=== PATIENT | male | born 1975 | race Caucasian/White ===

== ENCOUNTER 2019-05-19 05:57 | Observation (INO) ==
[2019-05-19] MEDS ORDERED: Ondansetron 4 MG/2 ML VIAL IVP ONE ×2 (06:06→07:50)
[2019-05-19] MEDS ORDERED: 0.9 % Sodium Chloride 1,000 ML IVC ONE (06:06)
[2019-05-19] MEDS ORDERED: Ketorolac 30 MG/ML VIAL IVP ONE (06:06)
[2019-05-19] MEDS ORDERED: *HR* HYDROmorphone (PF) 1 MG/ML SYRINGE IVP ONE (06:06)
--- NOTE | 2019-05-19 06:09 | Emergency Department Note ---
Disposition Clinical Impression: Ureterolithiasis Disposition: Admitted As Inpatient Condition: Good Time of Disposition: 09:14 Abdominal Pain HPI - General Chief Complaint: ED Abdominal Pain Stated Complaint: left side flank pain Time Seen by Provider: 05/19/19 06:02 Source: patient Mode of arrival: private vehicle Limitations: no limitations Nursing Notes Reviewed: Yes Vital Signs Reviewed: Yes - History of Present Illness HPI Narrative: Dez is a pleasant 43 yo M. He presents to the ED with a chief complaint of pain not controlled with [place] for known kidney stone that was diagnosed on May 18 in the [facility] emergency room. Patient denies chest pain, shortness of breath, fevers chest pain dysuria inability to urinate. He states this is his first kidney stone. He states that he was relatively pain-free while he was in the emergency room on 05/18 however soon as he left the emergency room his pain started to increase. He states the pain is localized to his lower back and denies radiation into his groin. He states the pain comes in waves and that he is not able to control the pain with pain medication provided. He is unsure what makes the pain better or worse. He is otherwise healthy. Pt Subjective Complaint: flank pain Onset (ago): day(s) Consistency: intermittent, Worsening Pain Scale: 9 Radiation: none Migration to: no migration - Related Data Previous Rx's Medication Instructions Recorded HYDROcodone/Acet 5/325 mg [[place] 1 tab PO Q6H 2 Days #7 tab 05/18/19 5-325 mg] Ondansetron ODT [Zofran ODT] 4 mg SL Q4HR PRN #8 tab.rapdis 05/19/19 OxyCODONE/APAP 5/325 [Percocet 1 each PO Q4HR PRN 3 Days #10 05/19/19 5/325 MG] tablet Tamsulosin [Flomax] 0.4 mg PO DAILY #7 cap.er.24h 05/19/19 Allergies Allergy/AdvReac Type Severity Reaction Status Date / Time No Known Allergies Allergy Verified 05/19/19 06:00 All systems ED: reviewed and negative except as stated. Review of Systems: As Per HPI Abdominal Pain PMH - Past Medical History Medical history: Reports: no medical history Male Surgical History: Reports: no surgical history - Social History Smoking status: Never smoker Alcohol use: Reports: none Drug use: Reports: none Physical Exam - General Limitations: no limitations General appearance: alert - Head Head exam: atraumatic - Eye Eye exam: Present: normal appearance - ENT ENT exam: normal exam, normal oropharynx - Neck Neck exam: Present: normal inspection - Respiratory Respiratory exam: Present: normal lung sounds bilaterally. Absent: respiratory distress, wheezes - Cardiovascular Cardiovascular exam: Present: regular rate, normal rhythm - Abdominal Exam Abdominal exam: Present: soft, Non-Tender - Back Exam Back exam: Present: CVA tenderness (L) - Neurological Exam Neurological exam: Present: alert, oriented X3 - Skin Skin exam: Present: warm, dry, intact Course Course Narrative: 08 - patient notes that he has some return of nausea. He states the nausea medication helped the first time. 08 - patient has pain is starting to return. Patient will be changes orals at this time in anticipation of discharge. We are still waiting on hemolyzed redraw BNP to be resulted. Patient was initially prepped for discharge and transition oral pain medication which initially helped him. Patient states that roughly 1 hour following 2 by mouth Percocet 04/19 that his pain returned and was worsening. I discussed this case with Dr. Ovalle as well as the family and patient prefers to be admitted for pain control for potential lithotripsy tomorrow. Dr. Ovalle will admit the patient to his service as patient does not have any prior medical history that he disclosed to me. Vital Signs Temperature 97.5 F L 05/19/19 05:58 Pulse Rate 62 05/19/19 05:58 Respiratory Rate 20 05/19/19 05:58 Blood Pressure 125/75 05/19/19 05:58 O2 Sat by Pulse Oximetry 98 05/19/19 05:58 Temperature 97.5 F L 05/19/19 05:58 Pulse Rate 49 05/19/19 08:48 Respiratory Rate 20 05/19/19 08:48 Blood Pressure 117/71 05/19/19 08:48 O2 Sat by Pulse Oximetry 99 05/19/19 08:48 Oxygen Delivery Oxygen Delivery Nasal Cannula Abdominal Pain - [facility] Narrative Medical decision making narrative: Toradol added initially due to patient's worsening pain and based on labs from 05/18 and effort to control the pain in a patient with known stone. Case was staffed with Dr. Sybil Soto. - Medical Records Medical records reviewed: Yes I reviewed the patient's medical records. - Lab Data Lab results reviewed: Yes I reviewed the patient's lab results. Result diagrams: 05/19/19 06:20 05/19/19 08:08 Lab Results 05/19/19 05/19/19 05/19/19 Range/Units 06:20 06:20 07:47 WBC 11.7 H (4.3-11.1) K/mcL RBC 5.52 H (4.19-5.50) M/mcL Hgb 16.2 (12.9-16.9) g/dL Hct 46.8 (37.5-50.1) % MCV 84.8 (83.0-100.0) fL MCH 29.3 (28.0-33.3) pg MCHC 34.6 (31.6-35.5) g/dL RDW 12.2 (11.5-14.5) % Plt Count 185 (140-400) K/mcL MPV 11.4 (9.4-12.4) fL Immature Gran % 0.3 (0-4) % Seg Neutrophils % 81.6 % Lymphocytes % 11.8 % Monocytes % 5.5 % Eosinophils % 0.5 % Basophils % 0.3 % Neutrophils # 9.6 H (1.6-8.9) K/mcL Lymphocytes # 1.4 (0.6-4.6) K/mcL Monocytes # 0.6 (0.0-1.3) K/mcL Eosinophils # 0.1 (0.0-0.6) K/mcL Basophils # 0.0 (0.0-0.2) K/mcL Sodium (136-145) mEq/L Potassium (3.5-5.1) mEq/L Chloride (98-107) mEq/L Carbon Dioxide (23-29) mEq/L BUN (6-20) mg/dL Creatinine (0.70-1.30) mg/dL Est GFR ( Amer) (> 60) Est GFR (Non-Af Amer) (> 60) BUN/Creatinine Ratio (6-26) Glucose (70-105) mg/dL Calculated Osmolality (280-300) Calcium (8.6-10.3) mg/dL Urine Color Yellow (Yellow) Urine Clarity Clear (Clear) Urine pH 5.5 (5.0-8.0) pH Units Ur Specific [place] > 1.030 H (1.010-1.025) Urine Protein Negative (Neg-Trace) mg/dL Urine Glucose (UA) Normal (Normal) mg/dL Urine Ketones Trace H (Negative) mg/dL Urine Blood Negative (Negative) Urine Nitrite Negative (Negative) Urine Bilirubin Negative (Negative) Urine Urobilinogen Normal (Normal) mg/dL Ur Leukocyte Esterase Negative (Negative) Ur Culture Indicated? NO (NO) Specimen Rejected Hemolyzed 05/19/19 Range/Units 08:08 WBC (4.3-11.1) K/mcL RBC (4.19-5.50) M/mcL Hgb (12.9-16.9) g/dL Hct (37.5-50.1) % MCV (83.0-100.0) fL MCH (28.0-33.3) pg MCHC (31.6-35.5) g/dL RDW (11.5-14.5) % Plt Count (140-400) K/mcL MPV (9.4-12.4) fL Immature Gran % (0-4) % Seg Neutrophils % % Lymphocytes % % Monocytes % % Eosinophils % % Basophils % % Neutrophils # (1.6-8.9) K/mcL Lymphocytes # (0.6-4.6) K/mcL Monocytes # (0.0-1.3) K/mcL Eosinophils # (0.0-0.6) K/mcL Basophils # (0.0-0.2) K/mcL Sodium 143 (136-145) mEq/L Potassium 3.9 (3.5-5.1) mEq/L Chloride 108 H (98-107) mEq/L Carbon Dioxide 23 (23-29) mEq/L BUN 17 (6-20) mg/dL Creatinine 1.47 H (0.70-1.30) mg/dL Est GFR ( Amer) > 60 (> 60) Est GFR (Non-Af Amer) 52 L (> 60) BUN/Creatinine Ratio 12 (6-26) Glucose 128 H (70-105) mg/dL Calculated Osmolality 299 (280-300) Calcium 9.2 (8.6-10.3) mg/dL Urine Color (Yellow) Urine Clarity (Clear) Urine pH (5.0-8.0) pH Units Ur Specific [place] (1.010-1.025) Urine Protein (Neg-Trace) mg/dL Urine Glucose (UA) (Normal) mg/dL Urine Ketones (Negative) mg/dL Urine Blood (Negative) Urine Nitrite (Negative) Urine Bilirubin (Negative) Urine Urobilinogen (Normal) mg/dL Ur Leukocyte Esterase (Negative) Ur Culture Indicated? (NO) Specimen Rejected - Radiology Data Radiology results reviewed: Yes I reviewed the patient's radiology results.
[2019-05-19 06:43] LABS: Basophils % 0.3 %; Eosinophils # 0.1 K/mcL (0.0-0.6); Eosinophils % 0.5 %; Hematocrit 46.8 % (37.5-50.1); Hemoglobin 16.2 g/dL (12.9-16.9); Immature Granulocytes % 0.3 % (0-4); Lymphocytes # 1.4 K/mcL (0.6-4.6); Lymphocytes % 11.8 %; Mean Corpuscular HGB Conc 34.6 g/dL (31.6-35.5); Mean Corpuscular Hemoglobin 29.3 pg (28.0-33.3); Mean Corpuscular Volume 84.8 fL (83.0-100.0); Mean Platelet Volume 11.4 fL (9.4-12.4); Monocytes # 0.6 K/mcL (0.0-1.3); Monocytes % 5.5 %; Neutrophils # 9.6 K/mcL (1.6-8.9); Platelet Count 185 K/mcL (140-400); Red Blood Count 5.52 M/mcL (4.19-5.50); Red Cell Distribution Width 12.2 % (11.5-14.5); Segmented Neutrophils % 81.6 %; White Blood Count 11.7 K/mcL (4.3-11.1)
[2019-05-19 07:58] LABS: Bilirubin,Urine Negative (Negative); Blood,Urine Negative (Negative); Clarity,Urine Clear (Clear); Color,Urine Yellow (Yellow); Glucose,Urine (UA) Normal (Normal); Ketones,Urine Trace mg/dL (Negative); Leukocyte Esterase,Urine Negative (Negative); Nitrite,Urine Negative (Negative); PH,Urine 5.5 pH Units (5.0-8.0); Protein,Urine Negative (Neg-Trace); Specific Gravity,Urine > 1.030 (1.010-1.025); Urobilinogen,Urine Normal (Normal)
[2019-05-19] MEDS ORDERED: *HR* OxyCODONE/APAP 5/325 TABLET PO ONE (08:29)
[2019-05-19 08:41] LABS: BUN/Creatinine Ratio 12 (6-26); Blood Urea Nitrogen 17 mg/dL (6-20); Calcium 9.2 mg/dL (8.6-10.3); Carbon Dioxide 23 mEq/L (23-29); Chloride 108 mEq/L (98-107); Glucose 128 mg/dL (70-105); Osmolality,Calculated 299 (280-300); Potassium 3.9 mEq/L (3.5-5.1); Sodium 143 mEq/L (136-145); eGFR For African Americans > 60 (> 60); eGFR For Non-African Americans 52 (> 60)
[2019-05-19] MEDS ORDERED: *HR* Belladonna Alkaloids/Opium 30 MG RECTAL SUPPOSITORY RC PRN (11:31)
[2019-05-19] MEDS ORDERED: *HR* HYDROcodone/Acet 5/325 mg TABLET PO PRN (11:31)
[2019-05-19] MEDS ORDERED: Ondansetron 4 MG/2 ML VIAL IVP PRN (11:31)
[2019-05-19] MEDS ORDERED: Naloxone 0.4 MG/ML INJ IVP PRN (11:31)
[2019-05-19] MEDS ORDERED: Hyoscyamine SL 0.125 MG TAB.SUBL SL PRN (11:31)
--- NOTE | 2019-05-19 11:48 | Urology History & Physical ---
Date of Encounter: 05/19/19 Time of Encounter: 11:37 Assessment and Plan (1) Intractable pain Current Visit: Yes Status: Acute will treat with hydrocodone, oxycodone, and IV tylenol. hold on NSAIDS bc of GFR (2) Ureterolithiasis Current Visit: Yes Status: Acute will attempt trial of passage overnight. if unable to pass stone tonight pt has been added to schedule tomorrow. stone extraction with holmium laser is appropriate procedure. History of Present Illness Chief complaint: flank pain HPI: Mr. Rivera is a 43 year old male ER visit yesterday. CT scan with a 5 mm distal stone. He returned today with severe pain. KUB shows stable location of the stone. no fever. no GH. Past Med Surg Social Fam HX - Past Medical History Medical history: no medical history - Social History Smoking Status: Never smoker Smokeless Tobacco Status: Yes Alcohol use: none Drug use: none Medications and Allergies Calcium Carbonate [Calcium] 500 mg PO 3XW 05/19/19 [History] Multivitamin [Daily Multiple Vitamin] 1 tab PO DAILY 05/19/19 [History] [place]-3/Dha/Epa/Fish Oil [Fish Oil 1,000 mg Softgel] 1 tab PO DAILY 05/19/19 [History] Ondansetron ODT [Zofran ODT] 4 mg SL Q4HR PRN #8 tab.rapdis 05/19/19 [Rx] OxyCODONE/APAP 5/325 [Percocet 5/325 MG] 1 each PO Q4HR PRN 3 Days #10 tablet 05/19/19 [Rx] Tamsulosin [Flomax] 0.4 mg PO DAILY #7 cap.er.24h 05/19/19 [Rx] Allergy/AdvReac Type Severity Reaction Status Date / Time No Known Allergies Allergy Verified 05/19/19 06:00 Review of Systems - Constitutional fatigue, no chills, no fever(s) - EENT Nose, mouth and throat: no dizziness - Cardiovascular no chest pain - Respiratory no cough - Gastrointestinal abdominal pain, nausea, vomiting - Genitourinary flank pain - Musculoskeletal back pain - Integumentary no erythema - Neurological no confusion - Psychiatric no anxiety - Hematologic/Lymphatic as per HPI, no easy bleeding - Allergic/Immunologic no throat swelling Exam Initial Vital Signs Temp Pulse Resp BP Pulse Ox 97.5 F L 62 20 125/75 98 05/19/19 05:58 05/19/19 05:58 05/19/19 05:58 05/19/19 05:58 05/19/19 05:58 - General physical appearance Present: well developed (mild pain) - Eyes Present: PERRL - ENT Present: normal nares - Neck Present: no masses - Respiratory Present: normal respiratory effort - Cardiovascular Cardiovascular exam IM: RRR - Abdomen Abdomen: Present: soft - Integumentary Present: no rash, no growths - Neurologic Present: normal coordination. Absent: disoriented, confused - Musculoskeletal Present: normal gait Urology Results - Labs 05/19/19 06:20 05/19/19 08:08 Abnormal lab results WBC 11.7 K/mcL (4.3-11.1) H 05/19/19 06:20 RBC 5.52 M/mcL (4.19-5.50) H 05/19/19 06:20 9.6 K/mcL (1.6-8.9) H 05/19/19 06:20 Chloride 108 mEq/L (98-107) H 05/19/19 08:08 1.47 mg/dL (0.70-1.30) H 05/19/19 08:08 Est GFR (Non-Af Amer) 52 (> 60) L 05/19/19 08:08 Glucose 128 mg/dL (70-105) H 05/19/19 08:08 Ur Specific [place] > 1.030 (1.010-1.025) H 05/19/19 07:47 Trace mg/dL (Negative) H 05/19/19 07:47 Diabetes panel 05/19/19 Range/Units 08:08 Sodium 143 (136-145) mEq/L Potassium 3.9 (3.5-5.1) mEq/L Chloride 108 H (98-107) mEq/L Carbon Dioxide 23 (23-29) mEq/L BUN 17 (6-20) mg/dL Creatinine 1.47 H (0.70-1.30) mg/dL Glucose 128 H (70-105) mg/dL Calcium 9.2 (8.6-10.3) mg/dL Calcium panel 05/19/19 Range/Units 08:08 Calcium 9.2 (8.6-10.3) mg/dL Pituitary panel 05/19/19 Range/Units 08:08 Sodium 143 (136-145) mEq/L Potassium 3.9 (3.5-5.1) mEq/L Chloride 108 H (98-107) mEq/L Carbon Dioxide 23 (23-29) mEq/L BUN 17 (6-20) mg/dL Creatinine 1.47 H (0.70-1.30) mg/dL Glucose 128 H (70-105) mg/dL Calcium 9.2 (8.6-10.3) mg/dL Adrenal panel 05/19/19 Range/Units 08:08 Sodium 143 (136-145) mEq/L Potassium 3.9 (3.5-5.1) mEq/L Chloride 108 H (98-107) mEq/L Carbon Dioxide 23 (23-29) mEq/L BUN 17 (6-20) mg/dL Creatinine 1.47 H (0.70-1.30) mg/dL Glucose 128 H (70-105) mg/dL Calcium 9.2 (8.6-10.3) mg/dL All other labs normal.
[2019-05-19] MEDS: cefTRIAXone 1,000 MG in Water for inj. (sterile) 10 ML IVP SCH (13:16)
[2019-05-19] MEDS: 0.9 % Sodium Chloride 1,000 ML IVC SCH ×2 (13:19→22:00)
[2019-05-19] MEDS: *HR* Promethazine 25 MG/ML VIAL IVP PRN (15:19)
--- NOTE | 2019-05-19 17:46 | Anesthesia Evaluation PreOp ---
Date of Encounter: 05/19/19 Time of Encounter: 17:45 - Past History Planned Operation: Left Ureteral Stone Extraction Cardiac History: Denies any Significant Hx Pulmonary History: Denies Any Significant HX PRE PRESS MANAGER History: Denies Any Significant HX Other Medical History: Denies Any Significant HX Anesthesia History: No Prior Anesthetic Complications, Past Anesthesia ([place] Teeth, Tonsils) Alcohol Use: none Drug use: none Medications and Allergies Calcium Carbonate [Calcium] 500 mg PO 3XW 05/19/19 [History] Multivitamin [Daily Multiple Vitamin] 1 tab PO DAILY 05/19/19 [History] [place]-3/Dha/Epa/Fish Oil [Fish Oil 1,000 mg Softgel] 1 tab PO DAILY 05/19/19 [History] Ondansetron ODT [Zofran ODT] 4 mg SL Q4HR PRN #8 tab.rapdis 05/19/19 [Rx] OxyCODONE/APAP 5/325 [Percocet 5/325 MG] 1 each PO Q4HR PRN 3 Days #10 tablet 05/19/19 [Rx] Tamsulosin [Flomax] 0.4 mg PO DAILY #7 cap.er.24h 05/19/19 [Rx] Allergy/AdvReac Type Severity Reaction Status Date / Time No Known Allergies Allergy Verified 05/19/19 06:00 - Meds/Allergy Pre-op Review Medications Reviewed: Yes Allergies Reviewed: Yes Beta Blockers on Current Med List: No Anesthesia Results - Labs 05/19/19 06:20 05/19/19 08:08 Anesthesia Exam Vital Signs/O2 Sat, Most Current Temp Pulse Resp BP Pulse Ox 98.1 F 51 15 92/54 94 05/19/19 13:50 05/19/19 13:50 05/19/19 13:50 05/19/19 13:50 05/19/19 15:49 NPO (# of Hours): > 8 hrs Pain Scale: 0 Pain Scale Used: Numeric (1 - 10) - HEENT Pupil (Motor): Pupils equal, EOMI Mallampati: I Teeth: Normal Oral Opening: Greater than 3 - PRE PRESS MANAGER LOC: Oriented PRE PRESS MANAGER Motor: Normal RUE, Normal LUE, Normal RLE, Normal LLE, Normal Face PRE PRESS MANAGER Sensory: Normal: RUE, LUE, RLE, LLE, Face - Cardiac Rhythm: Regular Murmur: None JVD: No Carotid Bruit: No - Pulmonary Breath Sounds: bilateral Clear Respiratory Effort: Symmetrical Anesthesia Assess/Plan ASA Score: 1 Level of consciousness: Cooperative Anesthetic Plan: General Monitoring Plan: Standard Monitors Recovery Plan: PACU
[2019-05-19] MEDS ORDERED: *HR* FentaNYL (PF) 100 MCG/2 ML VIAL IVP PRN (18:48)
[2019-05-19] MEDS: Acetaminophen IV 1,000 MG/100 ML INFUS..BTL IVPB PRN (18:50)
[2019-05-20] MEDS: *HR* Promethazine 25 MG/ML VIAL IVP PRN (02:17)
[2019-05-20] MEDS: Acetaminophen IV 1,000 MG/100 ML INFUS..BTL IVPB PRN ×2 (04:24→10:44)
[2019-05-20] MEDS: 0.9 % Sodium Chloride 1,000 ML IVC SCH (07:57)
[2019-05-20] MEDS: cefTRIAXone 1,000 MG in Water for inj. (sterile) 10 ML IVP SCH (07:59)
--- NOTE | 2019-05-20 08:27 | Urology Progress Note ---
<Marie Gomez N - Last Filed: 05/20/19 08:24> Date of Encounter: 05/20/19 Time of Encounter: 08:10 - Assessment and Plan (1) Intractable pain Current Visit: Yes Status: Acute (2) Ureterolithiasis Current Visit: Yes Status: Acute Assessment and plan: Patient is a 43-year-old male who presents with a left ureteral stone and hydronephrosis. Patient does not feel that he passed the stone overnight, as his pain is persistent. We will plan to keep the patient nothing by mouth and proceed with surgery as scheduled this afternoon. Progress Note Subjective: still having pain Narrative: Patient seen and examined sitting upright in bed in no apparent distress. Nurse just administered sublingual oxycodone for pain control. Patient admits to continued left flank pain and left groin pain. Patient is nothing by mouth. Objective Initial Vital Signs Temp Pulse Resp BP Pulse Ox 97.5 F L 62 20 125/75 98 05/19/19 05:58 05/19/19 05:58 05/19/19 05:58 05/19/19 05:58 05/19/19 05:58 - General physical appearance Present: well developed, no distress, moderate pain - Respiratory Present: normal expansion, normal respiratory effort - Abdomen Present: soft, non tender. Absent: distended - Integumentary Present: no rash, no abnormal pigmentation - Musculoskeletal Present: normal posture - Psychiatric Present: oriented to time, oriented to person, oriented to place, speech is normal, memory intact - Labs 05/19/19 06:20 05/19/19 08:08 Diabetes panel 05/19/19 Range/Units 08:08 Sodium 143 (136-145) mEq/L Potassium 3.9 (3.5-5.1) mEq/L Chloride 108 H (98-107) mEq/L Carbon Dioxide 23 (23-29) mEq/L BUN 17 (6-20) mg/dL Creatinine 1.47 H (0.70-1.30) mg/dL Glucose 128 H (70-105) mg/dL Calcium 9.2 (8.6-10.3) mg/dL Calcium panel 05/19/19 Range/Units 08:08 Calcium 9.2 (8.6-10.3) mg/dL Pituitary panel 05/19/19 Range/Units 08:08 Sodium 143 (136-145) mEq/L Potassium 3.9 (3.5-5.1) mEq/L Chloride 108 H (98-107) mEq/L Carbon Dioxide 23 (23-29) mEq/L BUN 17 (6-20) mg/dL Creatinine 1.47 H (0.70-1.30) mg/dL Glucose 128 H (70-105) mg/dL Calcium 9.2 (8.6-10.3) mg/dL Adrenal panel 05/19/19 Range/Units 08:08 Sodium 143 (136-145) mEq/L Potassium 3.9 (3.5-5.1) mEq/L Chloride 108 H (98-107) mEq/L Carbon Dioxide 23 (23-29) mEq/L BUN 17 (6-20) mg/dL Creatinine 1.47 H (0.70-1.30) mg/dL Glucose 128 H (70-105) mg/dL Calcium 9.2 (8.6-10.3) mg/dL Consult Discharge Plan - Plan Instructions: Kidney Stones (GEN), Ureteral Stent Placement (DC) Additional Instructions: Call if fever greater than 101 degrees. May expect blood in the urine. May experience irritating voiding symptoms such as burning, urgency, frequency, hesitancy. May use AZO over the counter. May use Colace stool softener over the counter. Ok to shower. Ok to drive as long as you are no longer taking narcotic pain medication. Ok to return to normal activity as tolerated. If stent string is visible, may self remove stent in 3-5 days postoperatively. Referrals: Rafat Torres DO [Primary Care Provider] - Lauri Ovalle MD [Partnered Physician] - Prescriptions: Hyoscyamine SL [Levsin SL] 0.125 mg SL Q4HR #20 tab.subl HYDROcodone/Acet 5/325 mg [[place] 5-325 mg] 1 tab PO Q6H PRN 3 Days #12 tab PRN Reason: Pain <Lauri Ovalle - Last Filed: 05/20/19 18:17> Date of Encounter: 05/20/19 - Assessment and Plan (1) Intractable pain Current Visit: Yes Status: Acute (2) Ureterolithiasis Current Visit: Yes Status: Acute Assessment and plan: pt seen and examined. agree with PA findings. proceed with stone extraction today. Objective Initial Vital Signs Temp Pulse Resp BP Pulse Ox 97.5 F L 62 20 125/75 98 05/19/19 05:58 05/19/19 05:58 05/19/19 05:58 05/19/19 05:58 05/19/19 05:58 - Labs 05/19/19 06:20 05/19/19 08:08
[2019-05-20] MEDS ORDERED: Ondansetron 4 MG/2 ML VIAL ONE (14:03)
[2019-05-20] MEDS ORDERED: *HR* Propofol 200 MG/20 ML VIAL IVP ONE (14:03)
[2019-05-20] MEDS ORDERED: *HR* Midazolam HCl 2 MG/2 ML VIAL ONE (14:03)
[2019-05-20] MEDS ORDERED: Dexamethasone 4 MG/ML VIAL ONE (14:03)
[2019-05-20] MEDS ORDERED: *HR* FentaNYL (PF) 100 MCG/2 ML VIAL ONE (14:03)
[2019-05-20] MEDS ORDERED: Lidocaine -MPF 2% 2 ML VIAL ONE (14:03)
--- NOTE | 2019-05-20 14:16 | Discharge Summary ---
Date of Encounter: 05/20/19 Time of Encounter: 14:26 - Discharge Diagnosis (1) Intractable pain Priority: Primary Status: Acute (2) Ureterolithiasis Priority: Primary Status: Acute - Hospital Course Hospital course: Mr. Rivera is a 43 year old male - Time Spent with Patient Total time spent providing and/or coordinating discharge services: Procedures and tests throughout hospitalization: Left ureteroscopic stone extraction, left ureteral stent placement - Impressions ITS Impressions KUB X-Ray 05/19/19 06:07 IMPRESSION: No interval change in the position of the distal left ureteral calculus. D/ / Breezy Sequeira MD / Breezy Sequeira MD Interpreting Provider: Breezy Sequeira MD - Discharge Medications Prescriptions: New Tamsulosin [Flomax] 0.4 mg PO DAILY #7 cap.er.24h OxyCODONE/APAP 5/325 [Percocet 5/325 MG] 1 each PO Q4HR PRN 3 Days #10 tablet PRN Reason: Pain Ondansetron ODT [Zofran ODT] 4 mg SL Q4HR PRN #8 tab.rapdis PRN Reason: nausea / vomiting Hyoscyamine SL [Levsin SL] 0.125 mg SL Q4HR #20 tab.subl HYDROcodone/Acet 5/325 mg [[place] 5-325 mg] 1 tab PO Q6H PRN 3 Days #12 tab PRN Reason: Pain Continued [place]-3/Dha/Epa/Fish Oil [Fish Oil 1,000 mg Softgel] 1 tab PO DAILY Multivitamin [Daily Multiple Vitamin] 1 tab PO DAILY Calcium Carbonate [Calcium] 500 mg PO 3XW Home Medications: Calcium Carbonate [Calcium] 500 mg PO 3XW 05/19/19 [History] Multivitamin [Daily Multiple Vitamin] 1 tab PO DAILY 05/19/19 [History] [place]-3/Dha/Epa/Fish Oil [Fish Oil 1,000 mg Softgel] 1 tab PO DAILY 05/19/19 [History] Ondansetron ODT [Zofran ODT] 4 mg SL Q4HR PRN #8 tab.rapdis 05/19/19 [Rx] OxyCODONE/APAP 5/325 [Percocet 5/325 MG] 1 each PO Q4HR PRN 3 Days #10 tablet 05/19/19 [Rx] Tamsulosin [Flomax] 0.4 mg PO DAILY #7 cap.er.24h 05/19/19 [Rx] HYDROcodone/Acet 5/325 mg [[place] 5-325 mg] 1 tab PO Q6H PRN 3 Days #12 tab 05/20/19 [Rx] Hyoscyamine SL [Levsin SL] 0.125 mg SL Q4HR #20 tab.subl 05/20/19 [Rx] Allergies/Adverse Reactions: Allergy/AdvReac Type Severity Reaction Status Date / Time No Known Allergies Allergy Verified 05/19/19 06:00 Date of admission: 05/19/19 11:04 Primary care physician: Rafat Torres DO Discharging clinician: Marie Gomez Anticipated date of discharge: 05/20/19 Exam Initial Vital Signs Temp Pulse Resp BP Pulse Ox 97.5 F L 62 20 125/75 98 05/19/19 05:58 05/19/19 05:58 05/19/19 05:58 05/19/19 05:58 05/19/19 05:58 - General physical appearance Present: well developed, no distress, no pain - Eyes Present: PERRL, normal ocular movement - ENT Present: normal nares, no hearing loss, no congestion - Neck Present: no masses, trachea midline, no lymphadenopathy - Respiratory Present: normal respiratory effort - Cardiovascular Cardiovascular exam IM: RRR - Abdomen Abdomen: Present: soft, non tender. Absent: distended - Integumentary Present: no rash, no abnormal pigmentation - Neurologic Present: normal coordination - Musculoskeletal Present: other (normal posture ) - Patient Status Disposition: Home, Self-Care Condition: Good Functional capacity at discharge: independent ambulation Overall status at discharge: patient is progressing back to baseline - Discharge Instructions Follow Up With: Rafat Torres DO [Primary Care Provider] - Lauri Ovalle MD [Partnered Physician] - Additional Instructions: Call if fever greater than 101 degrees. May expect blood in the urine. May experience irritating voiding symptoms such as burning, urgency, frequency, hesitancy. May use AZO over the counter. May use Colace stool softener over the counter. Ok to shower. Ok to drive as long as you are no longer taking narcotic pain medication. Ok to return to normal activity as tolerated. If stent string is visible, may self remove stent in 3-5 days postoperatively. - Diet and Activity Activity: increase activity as tolerated Diet: advance to your usual diet
[2019-05-20] MEDS ORDERED: Isovue-300 50 ML VIAL ONE (14:32)
--- NOTE | 2019-05-20 15:54 | Anesthesia Evaluation Post Op ---
Date of Encounter: 05/20/19 Time of Encounter: 15:53 - Vital Signs Vital Signs: Vital Signs/O2 Sat, Most Current Temp Pulse Resp BP Pulse Ox 97.8 F 69 10 95/75 94 05/20/19 15:25 05/20/19 15:45 05/20/19 15:45 05/20/19 15:45 05/20/19 15:45 - Lungs Lungs: Clear Ascult./Percussion - Airway Airway: Non-obstructed - Cardiovascular Regular Rate - Mental Status Mental Status: Alert & Oriented, Answers Appropriately - Pain Pain Scale: 0 Pain Scale used: Numeric (1 - 10) - Nausea Vomiting Nausea Vomiting: Not Present - Hydration Hydration: Tolerates oral liquids - Discharge PostOp Status: Transfer Patient to floor
[2019-05-20] MEDS ORDERED: Acetaminophen 325 MG TABLET PO PRN (16:17)
[2019-05-20] MEDS ORDERED: Ondansetron 4 MG/2 ML VIAL IVP PRN (16:17)
[2019-05-20] MEDS ORDERED: Naloxone 0.4 MG/ML INJ IVP PRN (16:17)
--- NOTE | 2019-05-20 16:32 | Operative Note ---
Date of procedure: 05/20/19 Pre-op diagnosis: left 4 mm distal ureteral stone Post-op diagnosis: same Procedure: Left ureteroscopic stone extraction using holmium laser lithotripsy Left retrograde pyelogram and stent placement Anesthesia: BHAVINA Surgeon: Lauri Ovalle Was there an nursing home assistant present: No Estimated blood loss (cc): 0 Specimen: Stone fragments Condition: stable Disposition: PACU Procedure in Detail: PROCEDURE IN DETAIL: Patient was taken back to the operating room, positioned supine on the operating table. Anesthesia was applied without complication. They were moved into dorsal lithotomy. Careful attention was maintained to cushion all pressure points for patient's safety. They were prepped and draped in sterile fashion. Time-out was performed with the proper patient and procedure. A 21-Armenian rigid cystoscope was inserted into the bladder without d ifficulty. Systematic examination of bladder revealed no abnormalities. The left ureteral orifice was cannulated using a 5-Armenian ureteral Catheter and a retrograde pyelogram was performed using Isovue. A filling defect was identified which corresponded to the stone in the left distal ureter. At that point, a zip wire was placed through the 5-Armenian and confirmed in the renal pelvis with fluoroscopy. An 8-10 dilator was then placed over the zip wire to passively dilate the ureteral orifice. A semi-rigid ureteroscope was carefully inserted into the bladder and guided into the ureteral oriface. At that point, the stone was encountered and I felt that it required fragmentation for safe extraction. A 200 micron holmium laser fiber on a setting of 8 and 800 was used to fragment the stone into multiple pieces. The fragments were individually basketed out of the ureter with a 1.9 tipless basket. All stone in the ureter was removed. A 4.8 x 26 ureteral stent was placed over the zip wire under fluoroscopy without complication. The bladder was drained along with the stone fragments. They were collected and sent for stone analysis. The string was left attached to the stent and secured to the patient for easy removal in at least 72 hours
[2019-05-20 19:14] VITALS: BP 103/66
[2019-05-25 09:38] LABS: Calculi Mass 26 mg
== END 2019-05-20 19:24 | disposition home or self-care (01) ==
LOC: EMEROOARM 05:57 → 3ANU 05:57
PROVIDERS: ADMIT Urology; ATTEND Urology

== ENCOUNTER 2020-11-24 04:03 | Observation (INO) ==
[2020-11-24] MEDS ORDERED: *HR* FentaNYL (PF) 100 MCG/2 ML VIAL IVP ONE (04:25)
[2020-11-24] MEDS ORDERED: Ondansetron 4 MG/2 ML VIAL IVP ONE (04:25)
[2020-11-24] MEDS ORDERED: Isovue-370 500 ML BOTTLE IVP ONE (04:25)
[2020-11-24 04:47] LABS: Basophils # 0.1 K/mcL (0.0-0.2); Basophils % 0.7 %; Eosinophils # 0.2 K/mcL (0.0-0.6); Hematocrit 44.4 % (37.5-50.1); Hemoglobin 15.1 g/dL (12.9-16.9); Immature Granulocytes % 0.1 % (0-4); Lymphocytes # 1.9 K/mcL (0.6-4.6); Lymphocytes % 25.2 %; Mean Corpuscular Volume 85.2 fL (83.0-100.0); Mean Platelet Volume 10.8 fL (9.4-12.4); Monocytes # 0.6 K/mcL (0.0-1.3); Monocytes % 7.4 %; Neutrophils # 4.9 K/mcL (1.6-8.9); Platelet Count 161 K/mcL (140-400); Red Blood Count 5.21 M/mcL (4.19-5.50); Red Cell Distribution Width 12.4 % (11.5-14.5); Segmented Neutrophils % 64.6 %; White Blood Count 7.5 K/mcL (4.3-11.1)
[2020-11-24 05:04] LABS: Bilirubin,Urine Negative (Negative); Blood,Urine Large (Negative); Clarity,Urine Turbid (Clear); Color,Urine Yellow (Yellow); Glucose,Urine (UA) Normal (Normal); Ketones,Urine Negative (Negative); Leukocyte Esterase,Urine Negative (Negative); Mucus,Urine Moderate per lpf (None-Few); Nitrite,Urine Negative (Negative); PH,Urine 5.5 pH Units (5.0-8.0); Protein,Urine Trace mg/dL (Neg-Trace); RBC,Urine TNTC per hpf (0-3); Specific Gravity,Urine 1.024 (1.010-1.025); Squamous Epithelial Cell,Urine Few per hpf (None-Few); Urobilinogen,Urine Normal (Normal)
[2020-11-24 05:07] LABS: BUN/Creatinine Ratio 16 (6-26); Blood Urea Nitrogen 15 mg/dL (6-20); Calcium 9.4 mg/dL (8.6-10.3); Carbon Dioxide 25 mEq/L (23-29); Chloride 108 mEq/L (98-107); Glucose 116 mg/dL (70-105); Osmolality,Calculated 292 (280-300); Potassium 4.2 mEq/L (3.5-5.1); Sodium 140 mEq/L (136-145); eGFR For African Americans > 60 (> 60); eGFR For Non-African Americans > 60 (> 60)
[2020-11-24] MEDS ORDERED: Ketorolac 15 MG/ML VIAL IVP ONE (05:44)
[2020-11-24] MEDS ORDERED: *HR* Promethazine 25 MG/ML VIAL IM ONE (05:44)
[2020-11-24] MEDS ORDERED: Morphine Sulfate 2 MG/ML SYRINGE IVP STA (05:44)
[2020-11-24] MEDS ORDERED: Naloxone 0.4 MG/ML INJ IVP PRN ×2 (08:14→13:49)
[2020-11-24] MEDS ORDERED: Ondansetron 4 MG/2 ML VIAL IVP PRN ×2 (08:14→13:49)
[2020-11-24] MEDS ORDERED: 0.9 % Sodium Chloride 1,000 ML IVC SCH (08:15)
[2020-11-24] MEDS ORDERED: Ketorolac 30 MG/ML VIAL IVP PRN (08:18)
[2020-11-24] MEDS ORDERED: Isovue-300 50ML VIAL ONE (10:25)
[2020-11-24] MEDS ORDERED: *HR* Midazolam HCl 2 MG/2 ML VIAL ONE (11:48)
[2020-11-24] MEDS ORDERED: *HR* Propofol 200 MG/20 ML VIAL IVP ONE (11:48)
[2020-11-24] MEDS ORDERED: *HR* FentaNYL (PF) 100 MCG/2 ML VIAL ONE (11:48)
[2020-11-24] MEDS ORDERED: Lidocaine -MPF 2% 2 ML VIAL ONE (11:49)
[2020-11-24 11:51] LABS: Influenza A PCR Negative (Negative); Influenza B PCR Negative (Negative); Resp. Syncytial Virus PCR Negative (Negative)
[2020-11-24 12:00] LABS: SARS-CoV-2 by PCR (In House) Negative (Negative)
[2020-11-24] MEDS ORDERED: Famotidine 20 MG/2 ML VIAL ONE (12:13)
[2020-11-24] MEDS ORDERED: Acetaminophen IV 1,000 MG/100 ML BAG IVPB ONE ×2 (12:13→12:14)
[2020-11-24] MEDS ORDERED: Famotidine 20 MG/2 ML VIAL IVP ONE (12:14)
[2020-11-24] MEDS ORDERED: *HR* Labetalol 20 MG/4 ML SYRINGE IVP PRN (12:14)
[2020-11-24] MEDS ORDERED: *HR* HYDROmorphone (PF) 1 MG/ML SYRINGE IVP PRN (12:14)
[2020-11-24] MEDS ORDERED: *HR* HYDROmorphone 2 MG TABLET PO PRN (12:14)
[2020-11-24] MEDS ORDERED: *HR* OxyCODONE Immed Rel 5 MG TABLET PO PRN (12:14)
[2020-11-24] MEDS ORDERED: CeFAZolin Syr 2,000MG/20 ML 2,000 MG/20 ML SYRINGE IVPB ONE (12:21)
[2020-11-24] MEDS ORDERED: Ondansetron 4 MG/2 ML VIAL ONE (12:33)
[2020-11-24] MEDS ORDERED: Dexamethasone 4 MG/ML VIAL ONE (12:33)
[2020-11-24] MEDS ORDERED: *HR* Promethazine 25 MG/ML VIAL IM PRN (13:49)
[2020-11-24] MEDS: Ketorolac 30 MG/ML VIAL IVP PRN ×2 (14:03→20:45)
[2020-11-24] MEDS: 0.9 % Sodium Chloride 1,000 ML IVC SCH ×2 (14:03→23:50)
[2020-11-24] MEDS ORDERED: *HR* Belladonna Alkaloids/Opium 30 MG RECTAL SUPPOSITORY RC PRN (16:53)
[2020-11-24] MEDS ORDERED: *HR* Heparin 5,000 UNIT/ML VIAL SQ SCH (18:00)
[2020-11-24] MEDS: Acetaminophen IV 1,000 MG/100 ML BAG IVPB SCH ×2 (18:10→23:50)
[2020-11-25] MEDS: Acetaminophen IV 1,000 MG/100 ML BAG IVPB SCH (06:29)
[2020-11-25] MEDS: Ketorolac 30 MG/ML VIAL IVP PRN (06:31)
[2020-11-25] MEDS ORDERED: *HR* Belladonna Alkaloids/Opium 30 MG RECTAL SUPPOSITORY RC ONE (10:34)
[2020-11-25 14:29] VITALS: BP 128/70
== END 2020-11-25 19:30 | disposition home or self-care (01) ==
LOC: EMEROOARM 04:03 → 3ANU 04:03 → SUATTDRO 06:46 → 3ANU 07:54
PROVIDERS: ADMIT Student in an Organized Health Care Education/Training Program; ATTEND Internal Medicine